=== PATIENT | male | born 1935 | race Caucasian/White ===

== ENCOUNTER 2024-02-14 04:32 | Inpatient (IN) ==
--- NOTE | 2024-01-11 16:10 | PAT Medication Instructions ---
Medication Instructions Date of Service January 11, 2024 Home Medications aspirin 81 mg tablet 81 mg PO QAM fenofibrate nanocrystallized 145 mg tablet (Tricor) 145 mg PO QPM finasteride 5 mg tablet 5 mg PO QAM insulin degludec 100 unit/mL (3 mL) subcutaneous pen (Tresiba FlexTouch U-100 insulin) 80 unit subcut QAM insulin lispro 100 unit/mL subcutaneous solution (Humalog U-100 Insulin) 1 sliding scale dose subcut USEASDIRECTD PRN levothyroxine 50 mcg tablet 50 mcg PO QPM lisinopril 40 mg tablet 40 mg PO QAM metformin 1,000 mg tablet 1,000 mg PO BID multivitamin 1 tab PO QAM naproxen 500 mg tablet 500 mg PO BID PRN oxycodone 5 mg tablet 5 mg PO Q6H PRN simvastatin 40 mg tablet (Zocor) 40 mg PO HS tramadol 50 mg tablet 50 mg PO TID PRN ASK your surgeon for instructions naproxen 500 mg tablet 500 mg PO BID PRN ASK your prescriber and surgeon aspirin 81 mg tablet 81 mg PO QAM STOP taking 48 hours before surgery fenofibrate nanocrystallized 145 mg tablet (Tricor) 145 mg PO QPM DO NOT take the morning of surgery insulin lispro 100 unit/mL subcutaneous solution (Humalog U-100 Insulin) 1 sliding scale dose subcut USEASDIRECTD PRN lisinopril 40 mg tablet 40 mg PO QAM metformin 1,000 mg tablet 1,000 mg PO BID multivitamin 1 tab PO QAM Take morning of surgery With a small sip of water, OTHERWISE NOTHING TO EAT OR DRINK AFTER MIDNIGHT: finasteride 5 mg tablet 5 mg PO QAM oxycodone 5 mg tablet 5 mg PO Q6H PRN (if needed) tramadol 50 mg tablet 50 mg PO TID PRN (if needed) Take evening before surgery insulin lispro 100 unit/mL subcutaneous solution (Humalog U-100 Insulin) 1 sliding scale dose subcut USEASDIRECTD PRN levothyroxine 50 mcg tablet 50 mcg PO QPM metformin 1,000 mg tablet 1,000 mg PO BID oxycodone 5 mg tablet 5 mg PO Q6H PRN (if needed) simvastatin 40 mg tablet (Zocor) 40 mg PO HS tramadol 50 mg tablet 50 mg PO TID PRN (if needed) Insulin Dependent Diabetic Patients * Test your blood sugar the morning of surgery * If Blood Sugar is GREATER THAN 150, take HALF of your regular dose of: insulin degludec 100 unit/mL (3 mL) subcutaneous pen (Tresiba FlexTouch U-100 insulin) (40 units) * If Blood Sugar is LESS THAN 150, DO NOT TAKE ANY: insulin degludec 100 unit/mL (3 mL) subcutaneous pen (Tresiba FlexTouch U-100 insulin) Other Notes If you have any questions please call us at [phone] or [phone] or [phone] or [phone]
--- NOTE | 2024-01-18 12:55 | Anesthesiology Consultation ---
Date of Service January 18, 2024 Assessment & Plan (1) Encounter for pre-operative examination: Plan - check BSG am DOS. - elevated A1c at 8.3%: surgeon's office made aware. Jose advised that Dr. Sears feels surgery needs to proceed as scheduled. Case discussed in detail with Dr. Beckford who advised patient is acceptable to proceed without clearance but advised sending an optimization form to the PCP (Dr. Deuce Dye [place]) regarding elevated A1c. Chart Review Chart Review: Acceptable Risk for Surgery and Patient seen in Pre Admission Testing Teaching & Discussion Pre-Anesthesia Teaching/Discussion Notes: Instructed NPO after midnight before surgery, except medications with 15 cc of water. Medication instructions provided according to the PAT guidelines. History Surgery Operation Date: 02/14/24 07:15 Proposed Procedures p L1-L2, L2-L3, L4-L5 Posterior Lumbar Laminectomy, L4-L5 Lumbar Fusion with Interbody Cage with L4-L5 Lateral Lumbar Fusion and Posterior Instrumentation Nonsegmented, Open and Percutaneous with Localized Autograft with Spinal Cord Monitoring - Jason Sears MD Height/Weight Height: 5 ft 8 in Weight: 82.7 kg Allergies Allergy/AdvReac Type Severity Reaction Status Date / Time No Known Allergies Allergy Unverified 01/11/24 08:53 Additional Notes: Patient told PAT RN that he may have had a medication allergy from years ago, he could not recall name or type of medication during that conversion or discussion in PAT. Medications Home Medications Medication Instructions Recorded Confirmed Last Taken aspirin 81 mg tablet 81 mg PO QAM 01/11/24 01/11/24 Unknown fenofibrate nanocrystallized 145 145 mg PO QPM 01/11/24 01/11/24 Unknown mg tablet (Tricor) finasteride 5 mg tablet 5 mg PO QAM 01/11/24 01/11/24 Unknown insulin degludec 100 unit/mL (3 80 unit subcut QAM 01/11/24 01/11/24 Unknown mL) subcutaneous pen (Tresiba FlexTouch U-100 insulin) insulin lispro 100 unit/mL 1 sliding scale dose subcut 01/11/24 01/11/24 Unknown subcutaneous solution (Humalog USEASDIRECTD PRN prn U-100 Insulin) levothyroxine 50 mcg tablet 50 mcg PO QPM 01/11/24 01/11/24 Unknown lisinopril 40 mg tablet 40 mg PO QAM 01/11/24 01/11/24 Unknown metformin 1,000 mg tablet 1,000 mg PO BID 01/11/24 01/11/24 Unknown multivitamin 1 tab PO QAM 01/11/24 01/11/24 Unknown naproxen 500 mg tablet 500 mg PO BID PRN prn 01/11/24 01/11/24 Unknown oxycodone 5 mg tablet 5 mg PO Q6H PRN prn 01/11/24 01/11/24 Unknown simvastatin 40 mg tablet (Zocor) 40 mg PO HS 01/11/24 01/11/24 Unknown tramadol 50 mg tablet 50 mg PO TID PRN prn 01/11/24 01/11/24 Unknown Past Medical History Medical History (Updated 01/18/24 @ 13:08 by Nayely Monk PA-C) Anxiety "recently with everything I've been going through" Bilateral leg weakness BPH (benign prostatic hyperplasia) Degenerative spondylolisthesis Diabetes mellitus IDDM Disc degeneration, lumbosacral Hypercholesterolemia Hypertension controlled, stable per pt Hypothyroidism Low back pain radiating to both legs Lumbar stenosis with neurogenic claudication Osteoarthritis Patient denies h/o stroke, seizures, heart attack, heart failure, blood clots/DVTs or blood transfusions. Exercise / Class Metabolic Activity III < 4 Walking/Shop/Light housework (ambulates with rolling walker, denies chest discomfort or shortness of breath with usual activities) Past Surgical History Surgical History History of appendectomy History of cataract surgery bilateral History of colonoscopy History of hernia repair Past Anesthesia History No Hx of Anesthesia Complications and No Family Hx of Anesthesia Complications History of PONV No Hx of PONV and No Hx of Motion Sickness Social History Smoking Status: Never smoker Do You Dip or Chew Tobacco: No Hx Alcohol Use: No Hx Substance Use: No substance use type: does not use Review of Systems Snoring, denies witnessed apneas. Patient denies chest pain, shortness of breath, dyspnea on exertion, reflux, fever, chills, cough, wheezing, or palpitations. Physical Exam Vital Signs Vitals BP 119/66 P 78 TEMP 98.0 SP02 96% on RA RESP 19 Physical Patient resting comfortably in chair in no acute distress, alert and oriented, responding appropriately throughout visit Full cervical extension range of motion without pain TMD 3.5 finger breadths Mallampati Score 2 Dentition: edentulous, full upper and lower dentures Lungs: normal respiratory effort. Good air movement, clear throughout to auscultation, no adventitious breath sounds Cardiac: regular rate and rhythm, no murmurs noted Carotid arteries: negative bruit bilat Lab Results Anesthesia Preop Results Results Anesthesia Widget: WBC 7.00 K/ul (4.8-10.8) 01/18/24 Hgb 14.7 g/dl (14.0-18.0) 01/18/24 Hct 42.8 % (42.0-52.0) 01/18/24 Plt 242 K/uL (130-400) 01/18/24 Na 137 mmol/L (136-145) 01/18/24 K 4.7 mmol/L (3.5-5.1) 01/18/24 Cl 102 mmol/L (98-107) 01/18/24 CO2 27 mmol/L (21-32) 01/18/24 BUN 30 mg/dl (6-23) H 01/18/24 Creat 1.25 mg/dl (0.6-1.4) 01/18/24 Glucose Level 106 mg/dl (70-99(Fasting)) H 01/18/24 PT 11.6 Seconds (9.0-12.0) 01/18/24 PTT 26 Seconds (21-31) 01/18/24 INR 1.1 (0.9-1.1) 01/18/24 HA1c 8.3 % (4.5-5.6) H 01/18/24 Blood Type AB Positive 01/18/24 Antibody Screen NEGATIVE 01/18/24 Testing Electrocardiogram Date: 03/24/23 Sinus rhythm with 1st degree AV block, rate 60 bpm RBBB Inferior infarct, age undetermined Chest X-Ray Date: 01/18/24 No acute cardiopulmonary disease.
[~2024-02-14 04:32] MED LIST: SODIUM CHLORIDE 0.9% 1,000 ML IV SCH
[2024-02-14] MEDS ORDERED: LR 60ML/HR IV SCH (06:00)
[2024-02-14] MEDS ORDERED: LR 15ML/HR IV SCH (06:00)
[2024-02-14] MEDS: GABAPENTIN 300 MG CAP PO SCH (06:17)
[2024-02-14] MEDS: ACETAMINOPHEN 500 MG TAB PO SCH (06:17)
[2024-02-14] MEDS: LACTATED RINGER'S 1,000 ML IV SCH (06:25)
[2024-02-14] MEDS ORDERED: LIDOCAINE 2% 2 ML VIAL/AMP(20MG/ML) INFIL ONE ×2 (06:52→06:53)
[2024-02-14] MEDS ORDERED: DEXAMETHASONE SOD INJ 4 MG/ML VIAL ONE (06:52)
[2024-02-14] MEDS ORDERED: fentaNYL citrate PF 100 MCG/2 ML VIAL ONE ×3 (06:52→11:00)
[2024-02-14] MEDS ORDERED: MIDAZOLAM HCL 1 MG/ML 2ML VIAL ONE (06:52)
[2024-02-14] MEDS ORDERED: PROPOFOL IV EMULSION 10 MG/ML 20 ML VIAL IV ONE ×5 (06:52→11:28)
[2024-02-14] MEDS ORDERED: ONDANSETRON INJ 2 MG/ML 2 ML VIAL ONE (06:52)
[2024-02-14] MEDS ORDERED: ROCURONIUM BROMIDE 10 MG/ML 5 ML VIAL IV ONE (06:53)
[2024-02-14] MEDS ORDERED: ATROPINE SULFATE 0.1 MG/ML 10ML SYR IV PRN (07:05)
[2024-02-14] MEDS ORDERED: ONDANSETRON INJ 2 MG/ML 2 ML VIAL IV PRN ×2 (07:05→14:22)
[2024-02-14] MEDS ORDERED: ePHEDrine sulfate 50 MG/ML AMP IV PRN (07:05)
--- NOTE | 2024-02-14 07:17 | History & Physical Bridge Note ---
Date of Service February 14, 2024 History & Physical Bridge Note I have examined the patient, reviewed the History & Physical and in the interval since the performance of the History & Physical I have noted the following changes of clinical significance: no changes noted
[2024-02-14] MEDS ORDERED: SUCCINYLCHOLINE CHLORIDE 20 MG/ML 10 ML VIAL IV ONE (07:48)
[2024-02-14] MEDS ORDERED: ePHEDrine sulfate 50 MG/5 ML SYR ONE (07:48)
[2024-02-14] MEDS ORDERED: PHENYLEPHRINE 100MCG/ML 5ML SYR ONE (07:48)
[2024-02-14] MEDS: ceFAZolin 2000MG 2,000 MG/15 ML SYR IV SCH (07:48)
[2024-02-14] MEDS ORDERED: PHENYLEPHRINE HCL 10 MG/ML VIAL ONE (07:54)
[2024-02-14] MEDS ORDERED: ALBUMIN HUMAN 5% 12.5 GM/250 ML VIAL IV ONE (08:05)
[2024-02-14] MEDS: VANCOMYCIN HCL 1000MG/20ML VIAL ONE (11:09)
[2024-02-14] MEDS ORDERED: ceFAZolin 330 MG/ML 1 GM VIAL ONE (12:10)
[2024-02-14] MEDS ORDERED: SUGAMMADEX SODIUM 200 MG/2 ML VIAL IV ONE (12:35)
[2024-02-14] MEDS: THROMBIN 5000 UNITS KIT ONE (13:26)
[2024-02-14] MEDS: GELATIN SPONGE 12-7MM ONE (13:26)
[2024-02-14] MEDS: BUPIVACAINE/EPINEPHRINE 0.5% MPF 1:200,000 30 ML VIAL ONE (13:49)
--- NOTE | 2024-02-14 14:06 | Post Operative Brief Note ---
PG Immediate Post Op with CF Date of Surgery February 14, 2024 Pre & Post Diagnosis Operation Date: 02/14/24 07:15 Pre-Op Diagnosis: 1. Lumbar stenosis with neurogenic claudication 2. Left leg weakness 3. Disc degeneration, lumbosacral 4. Degenerative spondylolisthesis Post-Op Diagnosis: 1. Lumbar stenosis with neurogenic claudication 2. Left leg weakness 3. Disc degeneration, lumbosacral 4. Degenerative spondylolisthesis I identified the patient and participated in the time-out.: Yes Procedure Operation Date: 02/14/24 07:15 Actual Procedures p L1-L2, L2-L3 Posterior laminectomy, L4-L5 Left Lateral Lumbar interbody Fusion and Posterior Instrumentation Nonsegmented, Percutaneous with Spinal Cord Monitoring(Not Applicable) - Jason Sears MD Surgeon Jason Sears MD Hand Molder Meat none Estimated Blood Loss 50 Findings Consistent with Post-Op Diagnosis Specimens Specimen Description: No specimen per surgeon Drains Rolon Catheter (Inserted prior to procedure start by Edison Singh RN; 16f, 10cc in balloon; leg strap applied; clear, yellow urine returned)
[2024-02-14] MEDS: HYDROmorphone INJ 1 MG/ML SYRINGE IV PRN (14:20)
[2024-02-14] MEDS ORDERED: FAMOTIDINE 20 MG TAB PO PRN (14:22)
[2024-02-14] MEDS ORDERED: MAGNESIUM HYDROXIDE SUSP 30 ML UDC PO PRN (14:22)
[2024-02-14] MEDS ORDERED: bisacodyL 10 MG SUPP PR PRN (14:22)
[2024-02-14] MEDS ORDERED: ONDANSETRON 4 MG OD TAB PO PRN (14:22)
[2024-02-14] MEDS ORDERED: oxyCODONE/ACETAMINOPHEN 5mg/325mg TAB PO PRN (14:22)
[2024-02-14] MEDS ORDERED: DO NOT ADMINISTER FLU VACCINE PRN (14:22)
[2024-02-14] MEDS ORDERED: ACETAMINOPHEN 1,000 MG/100 ML VIAL IV PRN (14:22)
[2024-02-14] MEDS ORDERED: PROMETHAZINE 12.5 MG/50.5 ML BAG IV PRN (14:22)
[2024-02-14] MEDS ORDERED: METOCLOPRAMIDE HCL INJ 5 MG/ML 2 ML VIAL IV PRN (14:22)
[2024-02-14] MEDS ORDERED: LORazepam 2 MG/1 ML VIAL IV PRN (14:22)
[2024-02-14] MEDS ORDERED: hydrOXYzine HCl 25 MG TAB PO PRN (14:22)
[2024-02-14] MEDS ORDERED: SOD PHOSPHATE/SOD BIPHOSPHATE ENEMA 132 ML BTL PR PRN (14:22)
[2024-02-14] MEDS ORDERED: LORazepam 0.5 MG TAB PO PRN (14:22)
[2024-02-14] MEDS ORDERED: ALUMINUM/MAGNESIUM SUSP 30 ML UDC PO PRN (14:22)
[2024-02-14] MEDS ORDERED: NALOXONE HCL 0.4 MG/1 ML VIAL/CARP IV PRN (14:22)
[2024-02-14] MEDS ORDERED: diphenhydrAMINE Capsule 25 MG CAP PO PRN (14:22)
[2024-02-14] MEDS ORDERED: DO NOT ADMINISTER PNEUMOCOCCAL VACCINE PRN (14:22)
--- NOTE | 2024-02-14 15:18 | Anesthesiology Progress Note ---
Date of Service February 14, 2024 Anesthesia Post Procedure Vital Signs Vital Signs: Temp Pulse Pulse Resp BP BP Pulse Ox 02/14/24 15:15 36.4 C L 70 16 136/62 95 02/14/24 15:05 67 14 139/61 95 02/14/24 14:55 69 14 146/64 H 95 02/14/24 14:45 66 14 135/65 96 02/14/24 14:35 67 16 147/69 H 97 02/14/24 14:25 73 16 137/65 95 02/14/24 14:15 36.4 C L 80 16 166/71 H 93 02/14/24 05:58 36.4 C L 82 20 146/72 H 93 O2 Del Method O2 Flow Rate 02/14/24 15:15 Room Air 02/14/24 15:05 Oxymask 2 02/14/24 14:55 Oxymask 2 02/14/24 14:45 Oxymask 4 02/14/24 14:35 Oxymask 4 02/14/24 14:25 Oxymask 4 02/14/24 14:15 Oxymask 6 02/14/24 05:58 Room Air Pain Intensity Back: Pain Intensity: 6 Transfer of Care Handoff Completed per policy Notes Mental Status: alert / awake / arousable and participated in evaluation Nausea / Vomiting: adequately controlled Pain: adequately controlled Airway Patency, RR, SpO2: stable & adequate BP & HR: stable & adequate Hydration State: stable & adequate Anesthetic Complications: no major complications apparent and Pt Satisfied with anesthetic care
--- NOTE | 2024-02-14 15:32 | Fluoroscopy Report ---
FL lumbar spine 2-3V CLINICAL HISTORY: LUMBAR COMPARISON STUDY: Lumbar spine MRI December 13, 2022. Lumbar spine radiographs September 13, 2023. FLUOROSCOPY TIME: 3 minutes and 23 seconds. Danter: 258.50 mGy FLUOROSCOPIC IMAGES: 11 FINDINGS: Fluoroscopy was provided during L4-L5 discectomy, decompression and bilateral pedicle screw fusion. The hardware is intact. Fluoroscopy was also provided during multilevel posterior decompress ion. Final image demonstrates a linear radiodensity within the operative bed at the L2-L3 level. Ther e are adjacent surgical retractors. IMPRESSION: 1. Fluoroscopy provided during L4-L5 discectomy, decompression and fusion and additional multilevel l umbar laminectomy. 2. Linear radiodensity within the operative bed at the L2-L3 level on the final image. This suggests a surgical sponge. This finding will be called/faxed to the ordering provider to ensure that this was removed prior to closure. ACT 112: Negative or not required by law. Electronically signed by: Sandoval Andrews M.D. 02/14/2024 3:31 PM
[2024-02-14] MEDS ORDERED: NON-FORMULARY MEDICATION (Insulin Lispro [Humalog U-100 Insulin] 100 unit/mL Solution) SQ PRN (16:16)
--- NOTE | 2024-02-14 16:38 | Hospitalist Consultation ---
Date of Consultation February 14, 2024 Assessment & Plan (1) Lumbar stenosis with neurogenic claudication: S/p L1-L2, L2-L3 Posterior laminectomy, L4-L5 Left Lateral Lumbar interbody Fusion and Posterior Instrumentation Nonsegmented, Percutaneous with Spinal Cord Monitoring - Pre-op H&H stable, renal function stable, EKG NSR - Ancef and Vanco provided perioperatively - Vital signs stable postoperatively - Pain management, VTE PPx, bowel regimen, and activity level per orthopedic team - Added AM CBC and BMP - Wean O2 as tolerated to maintain O2 sat >90% - PT/OT to evaluate (2) Diabetes mellitus: Last A1c elevated at 8.3% on 01/18/24 - Hold metformin 1000 mg BID - Hold insulin degludec while inpatient and use glargine 20 units BID - Continue SSI --Goal BSG Range: Low 110 mg/dL, High 150 mg/dL --Correction Factor: 20 mg/dL/unit --Carbohydrate ratio = 6 g/unit --BSGs ACHS if eating, q6h if npo Plan Chronic stable issues: Dyslipidemia: Continue simvastatin, Tricor BPH: Continue finasteride Hypothyroidism: Continue levothyroxine Hypertension: Continue lisinopril Diet: DMT2 VTE PPx: SCDs; will defer chemical prophylaxis to surgical team CODE STATUS: Full code History of Present Illness Reason for Consultation: medical management Requesting Physician: Jason Sears MD Attending Physician: Jason Sears MD History of Present Illness Patient is an 88-year-old male with a past medical history of osteoarthritis, degenerative spondylolisthesis, lumbar stenosis with neurogenic claudication, lumbosacral disc degeneration, BPH, diabetes mellitus, hypothyroidism, anxiety, hypercholesterolemia, and hypertension. He had L1-L2, L2-L3 Posterior laminectomy, L4-L5 Left Lateral Lumbar interbody Fusion and Posterior Instrumentation Nonsegmented, Percutaneous with Spinal Cord Monitoring with Dr. Sears today. Per review of operative report, EBL was listed as [x], and there were [no complications noted]. Per review of patient's vitals postop, she has been [tachy, hypoxic, etc]; vitals otherwise stable. He was seen at bedside due to postop surgery consult. Patient reports that his lower back pain is mild at time of consult. He reports urinating and drinking liquids okay since the procedure, and has no new complaints at this time. He has not eaten since surgery; will order diet. Patient reports that he did not take any of his regular morning medications today; no recent change in medications. He does not use supplemental oxygen at baseline. No CPAP at night. ROS: Patient endorses expected lower back pain, mild headache. Patient denies fever, chills, sweats, dizziness, lightheadedness, headache, chest pain, pleuritic CP, SOB, cough, abdominal pain, N/V/D, changes in urinary/bowel habits, saddle anesthesia, or numbness or tingling down the legs. Allergies Allergy/AdvReac Type Severity Reaction Status Date / Time No Known Allergies Allergy Verified 02/14/24 05:46 Home Medications Medication Instructions Recorded Confirmed Type aspirin 81 mg tablet 81 mg PO QAM 01/11/24 02/14/24 History fenofibrate nanocrystallized 145 145 mg PO QPM 01/11/24 02/14/24 History mg tablet (Tricor) finasteride 5 mg tablet 5 mg PO QAM 01/11/24 02/14/24 History insulin degludec 100 unit/mL (3 80 unit subcut QAM 01/11/24 02/14/24 History mL) subcutaneous pen (Tresiba FlexTouch U-100 insulin) insulin lispro 100 unit/mL 1 sliding scale dose subcut 01/11/24 02/14/24 History subcutaneous solution (Humalog USEASDIRECTD PRN prn U-100 Insulin) levothyroxine 50 mcg tablet 50 mcg PO QPM 01/11/24 02/14/24 History lisinopril 40 mg tablet 40 mg PO QAM 01/11/24 02/14/24 History metformin 1,000 mg tablet 1,000 mg PO BID 01/11/24 02/14/24 History multivitamin 1 tab PO QAM 01/11/24 02/14/24 History naproxen 500 mg tablet 500 mg PO BID PRN prn 01/11/24 02/14/24 History oxycodone 5 mg tablet 5 mg PO Q6H PRN prn 01/11/24 02/14/24 History simvastatin 40 mg tablet (Zocor) 40 mg PO HS 01/11/24 02/14/24 History tramadol 50 mg tablet 50 mg PO TID PRN prn 01/11/24 02/14/24 History Patient History Medical History Osteoarthritis Bilateral leg weakness Degenerative spondylolisthesis Low back pain radiating to both legs 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, lumbosacral BPH (benign prostatic hyperplasia) Diabetes mellitus IDDM Hypothyroidism Anxiety "recently with everything I've been going through" Hypercholesterolemia Hypertension controlled, stable per pt Surgical History History of colonoscopy History of hernia repair History of appendectomy History of cataract surgery bilateral Social History Smoking Status: Never smoker Second Hand Exposure: No; Do You Dip or Chew Tobacco: No; Tobacco Cessation Education Requested by Patient: No Hx Alcohol Use: No Hx Substance Use: No Preferred Language: Montenegrin Product Management Internship Required: No Beliefs That Will Affect Care: None Current Living Situation: Alone Other Information That Helps Us Care for You: No Feels Safe at Home: Yes Safety Concerns: Feels Safe At This Time Assistive Devices: Cane, Denture - Upper, Denture - Lower and Walker Physical Exam Physical Exam: General: No acute distress, nondiaphoretic, well-developed, well-nourished. Skin: The skin was without rashes, erythema, edema, or bruising. Cardiac: Regular rate and rhythm. Systolic murmur noted. Pulm: Clear to auscultation bilaterally without wheezes, rales or rhonchi. No respiratory distress. 94% on room air. Abdominal: Soft, nontender, nondistended. Neuro: A&O x3. No focal neurological deficits. Spine: Dressing in place, clean, dry, intact. Extremities: Sensation to light touch intact bilaterally. Strength 5/5 bilaterally. Results & Data Results & Data Vital Signs (Past 12 Hours) Vital Signs Temp Pulse Pulse Resp BP BP Pulse Ox 02/14/24 16:17 97.9 F 71 18 144/64 H 96 02/14/24 15:45 68 16 131/57 L 95 02/14/24 15:35 70 16 141/61 H 94 02/14/24 15:25 70 15 143/58 H 95 02/14/24 15:15 97.5 F L 70 16 136/62 95 02/14/24 15:05 67 14 139/61 95 02/14/24 14:55 69 14 146/64 H 95 02/14/24 14:45 66 14 135/65 96 02/14/24 14:35 67 16 147/69 H 97 02/14/24 14:25 73 16 137/65 95 02/14/24 14:15 97.5 F L 80 16 166/71 H 93 02/14/24 05:58 97.5 F L 82 20 146/72 H 93 O2 Del Method O2 Flow Rate 02/14/24 16:17 Nasal Cannula 2 02/14/24 15:45 Nasal Cannula 2 02/14/24 15:35 Nasal Cannula 2 02/14/24 15:25 Nasal Cannula 2 02/14/24 15:15 Room Air 02/14/24 15:05 Oxymask 2 02/14/24 14:55 Oxymask 2 02/14/24 14:45 Oxymask 4 02/14/24 14:35 Oxymask 4 02/14/24 14:25 Oxymask 4 02/14/24 14:15 Oxymask 6 02/14/24 05:58 Room Air PG Care Time/CCT Total # of Minutes Spent Total Time Spent with Patient: Total time spent is greater than 50% in coordination of care (as documented) at patient's floor/unit and/or counseling patient: Coding Level of Care Code 63387 IN/OBS CONSULT LVL 3,45M Diagnoses Lumbar stenosis with neurogenic claudication M48.062 Diabetes mellitus E11.9
[2024-02-14] MEDS ORDERED: GLUCOSE 10 TAB/TUBE PO PRN (17:30)
[2024-02-14] MEDS ORDERED: CARBOHYDRATES FOR HYPOGLYCEMIA PO PRN (17:30)
[2024-02-14] MEDS ORDERED: GLUCAGON FOR INJ 1 MG VIAL SQ PRN (17:30)
[2024-02-14] MEDS ORDERED: DEXTROSE 50% 50 ML SYRINGE IV PRN (17:30)
[2024-02-14] MEDS ORDERED: GLUCOSE 40% GEL 15 GM TUBE PO PRN (17:30)
[2024-02-14] MEDS: INSULIN ASPART PER UNIT CHARGE SC SCH (19:59)
[2024-02-14 20:55] VITALS: RESP 16
[2024-02-14] MEDS ORDERED: metFORMIN HCL 500 MG TAB PO SCH (21:00)
[2024-02-14] MEDS: DOCUSATE SODIUM/SENNA 50/8.6MG TAB PO SCH (22:07)
[2024-02-14] MEDS: LEVOTHYROXINE SODIUM 50 MCG TABLET PO SCH (22:07)
[2024-02-14] MEDS: HYDROmorphone INJ 0.5 MG/0.5 ML SYR IV PRN (22:07)
[2024-02-14] MEDS: ceFAZolin 1000MG 1,000 MG/7.5 ML SYR IV SCH (22:07)
[2024-02-14] MEDS: LANTUS PER UNIT CHARGE SQ SCH (22:08)
[2024-02-15] MEDS: ACETAMINOPHEN 500 MG TAB PO PRN (01:07)
[2024-02-15] MEDS: POLYETHYLENE (MIRALAX) 17 GM PACK PO SCH (06:02)
[2024-02-15 07:09] LABS: Hematocrit (blood only) 37.1 % (42.0-52.0); Hemoglobin 12.4 g/dl (14.0-18.0); Mean Corpuscular Hemoglobin 31.3 pg (25.0-34.0); Mean Corpuscular Hgb Conc 33.4 g/dL (32.0-36.0); Mean Corpuscular Volume 93.7 fL (80.0-100.0); Platelet Count 212 K/uL (130-400); RDW Coefficient of Variation 13.5 % (11.5-14.5); RDW Standard Deviation 46.6 fL (36.4-46.3); Red Blood Count 3.96 M/uL (4.70-6.10); White Blood Count 11.38 K/ul (4.8-10.8)
[2024-02-15 07:12] VITALS: TEMP 97.5; O2SAT 98
[2024-02-15 07:28] LABS: BUN Creatinine Ratio 14.9 (10-20); Creatinine Clr Calc Pharmacy 39.5 ml/min; Potassium 4.3 mmol/L (3.5-5.1)
--- NOTE | 2024-02-15 08:39 | Hospitalist Progress Note ---
Date of Service February 15, 2024 Assessment & Plan (1) Lumbar stenosis with neurogenic claudication: Plan: S/p L1-L2, L2-L3 Posterior laminectomy, L4-L5 Left Lateral Lumbar interbody Fusion and Posterior Instrumentation Nonsegmented, Percutaneous with Spinal Cord Monitoring - Pre-op H&H stable, renal function stable, EKG NSR - Pain management, VTE PPx, bowel regimen, and activity level per orthopedic team - Sara and José Miguel provided perioperatively - Reviewed operative report which listed EBL 50 cc, no complications noted - Vital signs stable postoperatively - Leukocytosis likely reactionary to surgery; afebrile and no signs of acute infection - PT/OT to evaluate - Sent prescription for Flomax on discharge given chronic urinary retention (2) Diabetes mellitus: Plan: Last A1c elevated at 8.3% on 01/18/24 - Hold metformin 1000 mg BID - Hold insulin degludec while inpatient - Increased insulin glargine 40 units BID - Continue SSI --Goal BSG Range: Low 110 mg/dL, High 150 mg/dL --Correction Factor: 20 mg/dL/unit --Carbohydrate ratio = 6 g/unit --BSGs ACHS if eating, q6h if npo Plan Patient is medically stable for discharge from hospital medicine's perspective. Prescription sent to patient's home pharmacy for Flomax Chronic stable issues: Dyslipidemia: Continue simvastatin, Tricor BPH: Continue finasteride Hypothyroidism: Continue levothyroxine Hypertension: Continue lisinopril Diet: DMT2 VTE PPx: SCDs; will defer chemical prophylaxis to surgical team CODE STATUS: Full code Admission and Anticipated Discharge Date Admission Date: February 14, 2024 Subjective Patient seen and evaluated in bedside chair with friends present. He reports feeling well postop. His pain is well-controlled. He has passed gas and had a small bowel movement since surgery. He did have some urinary retention earlier today. He reports this has become a chronic issue for him over recent years. We discussed a prescription for Flomax, which he was agreeable to. He denies any chest pain, shortness of breath, abdominal pain, N/V, or lightheadedness. No additional complaints or concerns at this time. Physical Exam Physical Exam: General: No acute distress, nondiaphoretic, well-developed, well-nourished. Skin: The skin was without rashes, erythema, edema, or bruising. Cardiac: Regular rate and rhythm. Systolic murmur noted. Pulm: Clear to auscultation bilaterally without wheezes, rales or rhonchi. No respiratory distress. 98% on room air. Abdominal: Soft, nontender, nondistended. Neuro: A&O x3. No focal neurological deficits. Spine: Dressing in place, clean, dry, intact. Extremities: Sensation to light touch intact bilaterally. Strength 5/5 bilaterally. Results & Data Results & Data Vital Signs (Past 12 Hours) Vital Signs Temp Pulse Resp BP Pulse Ox O2 Del Method 02/15/24 07:09 97.5 F L 93 H 16 98/61 L 98 Room Air 02/15/24 04:00 98.4 F 89 16 119/62 93 Room Air 02/15/24 00:36 97.3 F L 102 H 16 165/68 H 93 Room Air 02/14/24 20:54 98.1 F 76 16 178/72 H 94 Room Air Laboratory Results Reviewed CBC Reviewed BMP PG Care Time/CCT Total # of Minutes Spent Total Time Spent with Patient: Total time spent is greater than 50% in coordination of care (as documented) at patient's floor/unit and/or counseling patient: Coding Level of Care Code 51173 SUB INP/OBS CARE 235MIN Diagnoses Lumbar stenosis with neurogenic claudication M48.062 Diabetes mellitus E11.9
[2024-02-15] MEDS ORDERED: NON-FORMULARY MEDICATION (Insulin Degludec [Tresiba Flextouch U-100] 100 unit/mL (3 mL) In SQ SCH (09:00)
[2024-02-15] MEDS: lisinopril 40 MG TAB PO SCH (09:03)
[2024-02-15] MEDS: LANTUS PER UNIT CHARGE SQ SCH (09:05)
[2024-02-15 09:09] VITALS: PULSE 97
[2024-02-15 11:14] VITALS: BP 126/78
[2024-02-15] MEDS: TAMSULOSIN HCL 0.4 MG CAP PO SCH (11:58)
--- NOTE | 2024-02-15 13:52 | Discharge Summary ---
Date of Service February 15, 2024 Admission HPI (Per Admitting) Lumbar stenosis Principal Diagnosis Same as "Discharge Diagnosis" noted below under Discharge Instructions. Discharge Data Consultations 02/14/24 14:22 Consult Hospitalist Routine Procedures Performed Operation Date: 02/14/24 07:15 Actual Procedures p L1-L2, L2-L3 Posterior laminectomy, L4-L5 Left Lateral Lumbar interbody Fusion and Posterior Instrumentation Nonsegmented, Percutaneous with Spinal Cord Monitoring(Not Applicable) - Jason Sears MD Ordered Studies 02/14/24 07:15 [place] lumbar spine 2-3V Routine Hospital Course (1) Lumbar stenosis with neurogenic claudication: surgery (2) Degenerative spondylolisthesis: surgery PG Care Time/CCT Total # of Minutes Spent Total Time Spent with Patient: Total time spent is greater than 50% in coordination of care (as documented) at patient's floor/unit and/or counseling patient: Discharge Plan Discharge Items Patient Disposition: Home - Self-Care Reason For Visit: Left Leg Weakness, Disc Degeneration Lumbosacral, Discharge Diagnosis: same Activity: As commented below Lifting: No more than 10 pounds Bathing: May shower/bathe in 3 days Exercise/Sports: Wait until after follow-up appointment Weightbearing: Full weightbearing Non-emergency contact: Surgeon Call non-emergency contact if: your pain is worsening Follow-up/Referrals: Pawel Mackay MD [Outside Practitioners] - Diet: Regular Addtl Attending Provider Instructions: Prescription to be sent through ambulatory chart, follow-up in 2 weeks. No anti-inflammatory medications. Addtl Pediatric Sports Medicine Specialist Provider Instructions: Mr. Huerta, As we discussed, I have sent a prescription for Flomax to your pharmacy. Please take 1 tablet daily. This will help with your urinary retention. Follow-up with your PCP in 1-2 weeks if needed. It was a pleasure taking care of you while you were in the hospital, Laurie Rivers PA-C Pending Studies at Discharge: No Stand-Alone Forms: My [facility] [employer], Smoking Cessation Medications and DC Order Prescriptions: New tamsulosin 0.4 mg Capsule 0.4 mg PO QAM Qty: 30 0RF Continued multivitamin Tablet 1 tab PO QAM tramadol 50 mg Tablet 50 mg PO TID PRN (Reason: prn) simvastatin [Zocor] 40 mg Tablet 40 mg PO HS levothyroxine 50 mcg Tablet 50 mcg PO QPM metformin 1,000 mg Tablet 1,000 mg PO BID aspirin 81 mg Tablet 81 mg PO QAM insulin lispro [Humalog U-100 Insulin] 100 unit/mL Solution 1 sliding scale dose SUBCUT USEASDIRECTD PRN (Reason: prn) Patient Comments: per BSG QAM and QPM- per patient "rarely needs" lisinopril 40 mg Tablet 40 mg PO QAM finasteride 5 mg Tablet 5 mg PO QAM oxycodone 5 mg Tablet 5 mg PO Q6H PRN (Reason: prn) fenofibrate nanocrystallized [Tricor] 145 mg Tablet 145 mg PO QPM insulin degludec [Tresiba FlexTouch U-100] 100 unit/mL (3 mL) Insulin Pen 80 unit SUBCUT QAM Held naproxen 500 mg Tablet 500 mg PO BID PRN (Reason: prn) Hold Instructions: Resume on 04/20/24. Discharge Orders: Discharge Order (Routine); Ordered 02/15/24 Ordered By: Jason Sears Admission Data Admit Date/Time: 02/14/24 14:22 Attending Provider: Jason Sears Admit Provider: Jason Sears Primary Care Provider: Deuce Dye Other Providers: Abraham Higgins
--- NOTE | 2024-02-15 14:19 | Orthopedic Progress Note ---
Date of Service February 15, 2024 Subjective Patient seen and examined, he notes an improvement in his lower extremities versus preoperative symptoms, some limited incisional pain. Dressings with limited drainage present, intact motor strength in lower extremities. Impression/plan: 1 day status post lateral cage placement at L4-5 with posterior instrumented fusion but additional decompression at L1-2 and L2-3. Patient overall is doing well, he expressed an interest in being discharged to home and if he clears therapy and medical clearance he can be discharged to home with follow-up in 2 weeks. Review of Systems All systems reviewed & are unremarkable except as noted in HPI & below. Physical Exam . Results & Data Results & Data Laboratory Results . Diagnostic Findings . PG Care Time/CCT Total # of Minutes Spent Total Time Spent with Patient: Total time spent is greater than 50% in coordination of care (as documented) at patient's floor/unit and/or counseling patient: Coding Level of Care Code 30610 Post Operative Follow-Up
--- NOTE | 2024-02-15 14:27 | Operative Report ---
PG Post Operative Report Pre & Post Diagnosis Operation Date: 02/14/24 07:15 Pre-Op Diagnosis: 1. Lumbar stenosis with neurogenic claudication 2. Left leg weakness 3. Disc degeneration, lumbosacral 4. Degenerative spondylolisthesis Post-Op Diagnosis: 1. Lumbar stenosis with neurogenic claudication 2. Left leg weakness 3. Disc degeneration, lumbosacral 4. Degenerative spondylolisthesis I identified the patient and participated in the time-out.: Yes Procedure Operation Date: 02/14/24 07:15 Actual Procedures p L1-L2, L2-L3 Posterior laminectomy, L4-L5 Left Lateral Lumbar interbody Fusion and Posterior Instrumentation Nonsegmented, Percutaneous with Spinal Cord Monitoring(Not Applicable) - Jason Sears MD Surgeon Jason Sears MD Coagulating Drying Supervisor none Estimated Blood Loss 50 Findings Consistent with Post-Op Diagnosis Specimens none Description of Procedure 1. L4-5 left lateral interbody arthrodesis. (46237) 2. L4-5 left lateral interbody cage, NuVasive cohere XL 12 x 22 x 60 mm lordotic. (55321) 3. L4-5 posterior nonsegmental instrumentation, NuVasive reline. (56069). 4. L1-2 and L2-3 posterior lumbar decompression with bilateral hemilaminectomies partial medial facetectomies and foraminotomies. (26901 [id number]) Patient was taken the operating room and after adequate anesthesia was carefully positioned in the right lateral decubitus position, left side up. Once in that position and then moved ahead with obtaining fluoroscopic images and securing the patient to the operating room table in the standard fashion for a left t- sided approach to the L4-5 level. Once doing so, I was able to paola the area for the incision followed by prepping and draping. A transverse incision was made over the left iliac crest, advanced down through the subcutaneous tissues and through the tissues to was able to enter the retroperitoneal region right carefully advanced the abdominal contents anteriorly was able to palpate the psoas. I then inserted the initial dilator from the NuVasive set advanced down to the lateral aspect of the L4-5 disc space, monitoring was used to confirm the location along with fluoroscopy relative to any neurologic structures, the guidewire was set. This was then advanced by the additional dilators followed by the access apparatus. Additional imaging was performed to make adjustments for proper approach to the L4-5 level, and this was secured with a samuel after us visually inspecting the region and also using the monitoring probe. The lateral annulus was then incised followed by then removal of disc material from the disc space using a combination of instruments. Care was taken to remove the disc material and also cartilage from the endplates. Once this was completed, I went through trials selecting the size cage as noted which appeared to fit the interspace well and provide reduction of the spondylolisthesis. Fusion materials were then placed within the disc space and, the access apparatus was removed final inspection revealed no issues, and I then placed vancomycin powder and closed the operative site with 0 Vicryl sutures followed by 2-0 Vicryl sutures and lewis for the skin. The patient was repositioned onto the Elia frame, preprepped with been performed beginning of the procedure, I brought in fluoroscopy and marked for the area of the incisions posteriorly and the side of the midline for the approach. Prep and drape was performed, began the procedure with the 2 lateral incisions followed by insertion of the Jamshidi needle which was inserted utilizing fluoroscopy and monitoring into L5 bilaterally. Guidewires were then set followed by then removal of the Jamshidi needles, they were then reinserted at the L4 level in a similar fashion with no issues. Guidewires 1 set were utilized to guide the tap followed by insertion of 6.5 millimeter screws, 50 mm in length, all with greater than 20 monitoring and proper position on fluoroscopy. Rods were then inserted, I was able to torque them to proper position inferiorly and then used this as an additional reduction tool obtaining what close to complete reduction of the spondylolisthesis. Upon completion of this portion of the procedure, I then made a midline incision over the L1-2 and L2-3 segments. This was advanced down on either side of the spinous processes and into the left interlaminar region of the 2 levels mentioned with confirmation via fluoroscopy to confirm our levels. With this now completed, I then performed a decompression at both levels with hemilaminectomies partial medial facetectomies and foraminotomies with thinning and removing the ligamentum flavum and decompressing the exiting nerve roots at L1, L2 and L3 bilaterally. Upon completion all operative sites were irrigated, Final images were obtained, then closure using interrupted 0 Vicryl sutures after placement of vancomycin powder, additional 2-0 Vicryl sutures and lewis for the skin, this includes a midline incision for the decompressions and bilateral incisions for insertion of the instrumentation at L4-5. Sterile dressing was applied, the patient was taken recovery room satisfactory condition. I attest to the content of the Intraoperative Record and any orders documented therein. Any exceptions are noted below. I attest to the content of the Intraoperative Record and any orders documented therein. Any exceptions are noted below.
== END 2024-02-15 14:52 | disposition home or self-care (01) | DRG 451 ==
LOC: ASU 04:32 → 3E 14:22
DX: Z79.84 Long term (current) use of oral hypoglycemic drugs; E78.00 Pure hypercholesterolemia, unspecified; Z79.890 Hormone replacement therapy; M51.379 Other intervertebral disc degeneration, lumbosacral region without mention of lumbar back pain or lower extremity pain; Z79.899 Other long term (current) drug therapy; M48.062 Spinal stenosis, lumbar region with neurogenic claudication; E03.9 Hypothyroidism, unspecified; F41.9 Anxiety disorder, unspecified; I10 Essential (primary) hypertension; N40.0 Benign prostatic hyperplasia without lower urinary tract symptoms; M43.06 Spondylolysis, lumbar region; Z79.82 Long term (current) use of aspirin; E11.9 Type 2 diabetes mellitus without complications; Z79.4 Long term (current) use of insulin